=== PATIENT | male | born 1940 | race Caucasian/White ===

== ENCOUNTER 2018-01-19 17:35 | Inpatient (IN) ==
[2018-01-19 18:09] LABS: Basophils % 0.3 % (0.0-0.8); Eosinophils # 0.2 10*3/uL (0.0-0.87); Eosinophils % 1.7 % (0.00-10.9); Hematocrit 39.2 VOL% (42.0-52.0); Immature Granulocytes % 0.4 %; Immature Granulocytes Absolute 0.05 #; Lymphocytes # 1.2 10*3/uL (1.4-4.0); Lymphocytes % 8.8 % (21.2-54.2); Mean Corpuscular HGB Conc 33.2 GM/DL (32-36); Mean Corpuscular Hemoglobin 30 PG (27-34); Mean Corpuscular Volume 89.9 FL (87-102); Mean Platelet Volume 9.4 FL (9.6-12.0); Neutrophils # 11.4 10*3/uL (1.4-7.4); Neutrophils % 81.8 % (38.7-73.9); Platelet Count 310 T/CUMM (130-400); Red Blood Count 4.36 MC/CUMM (3.8-5.5); Red Cell Distribution Width 13.2 % (9.3-17.3); White Blood Count 13.9 T/CUMM (4-12)
[2018-01-19 18:29] LABS: Albumin 3.8 G/DL (3.4-5.0); Bilirubin,Total 0.5 MG/DL (0.2-1.0); Calcium 9.6 MG/DL (8.5-10.1); Osmolality,Calculated 274.1 MOS/KG (273-304); Potassium 4.3 MMOL/L (3.5-5.1); Total Protein 8.5 G/DL (6.4-8.3)
[2018-01-19] MEDS ORDERED: SODIUM CHLORIDE 0.9% 1,000 ML IV STA (18:45)
[2018-01-19] MEDS ORDERED: ONDANSETRON 4 MG/2 ML VIAL IV STA (18:45)
[2018-01-19] MEDS ORDERED: PANTOPRAZOLE 40 MG VIAL IV STA (18:45)
[2018-01-19] MEDS ORDERED: HYDROmorphone 2 MG/1 ML VIAL IV STA (18:45)
[2018-01-19] MEDS ORDERED: ACETAMINOPHEN 500 MG TABLET PO STA (18:54)
[2018-01-19 19:10] LABS: Apearance,Urine CLOUDY (Clear); Bilirubin,Urine Negative (Negative); Blood, Urine Negative (Negative); Glucose,Urine (UA) Negative (Negative); Ketones,Urine Negative (Negative); Mucus,Urine Occasional /LPF (Occasional); Nitrite,Urine Positive (Negative); Protein,Urine Negative; RBC,Urine 9 /HPF (0-4); Squamous Epithelial Cell,Urine Occasional /HPF (0-10); Urine Color Yellow (Yellow); Urine Urobilinogen < 2.0 EU/DL (0.2-1.0); WBC,Urine 136 /HPF (0-6)
[2018-01-19] MEDS ORDERED: MEROPENEM 1,000 MG in SODIUM CHLORIDE 0.9% 100 ML IV STA (20:10)
[2018-01-19] MEDS ORDERED: ONDANSETRON 4 MG/2 ML VIAL IV PRN (21:53)
[2018-01-19] MEDS ORDERED: MORPHINE 4 MG/1 ML VIAL IV PRN (21:53)
[2018-01-19] MEDS ORDERED: ENOXAPARIN 40 MG/0.4 ML SYRINGE SUBCUT SCH (22:00)
[2018-01-19] MEDS ORDERED: Saccharomyces Boulardii [Probiotic] 250 MG PO SCH (23:07)
[2018-01-19] MEDS ORDERED: NITROGLYCERIN SL 0.4 MG TABLET SL PRN (23:07)
[2018-01-19] MEDS: SODIUM CHLORIDE 0.9% 1,000 ML IV SCH (23:46)
[2018-01-19] MEDS: FENOFIBRATE 145 MG TABLET PO SCH (23:57)
[2018-01-19] MEDS: MAGNESIUM CHLORIDE 64 MG TABLET PO SCH (23:57)
[2018-01-19] MEDS: OMEGA 3 ACID ETHYL ESTERS 1 GM CAPSULE PO SCH (23:57)
[2018-01-19] MEDS: RANOLAZINE 500 MG TABLET PO SCH (23:57)
[2018-01-19] MEDS: ASPIRIN EC 81 MG TABLET PO SCH (23:57)
[2018-01-19] MEDS: PRAVASTATIN 20 MG TABLET PO SCH (23:57)
[2018-01-19] MEDS: TICAGRELOR 90 MG TABLET PO SCH (23:57)
[2018-01-19] MEDS: ATENOLOL 25 MG TABLET PO SCH (23:58)
[2018-01-20 04:32] LABS: Basophils % 0.2 % (0.0-0.8); Eosinophils # 0.2 10*3/uL (0.0-0.87); Eosinophils % 1.7 % (0.00-10.9); Hematocrit 32.8 VOL% (42.0-52.0); Hemoglobin 10.7 GM/DL (14.0-18.0); Immature Granulocytes % 0.6 %; Immature Granulocytes Absolute 0.05 #; Lymphocytes % 11.3 % (21.2-54.2); Mean Corpuscular HGB Conc 32.6 GM/DL (32-36); Mean Corpuscular Hemoglobin 29 PG (27-34); Mean Corpuscular Volume 89.1 FL (87-102); Mean Platelet Volume 9.9 FL (9.6-12.0); Monocytes # 0.9 10*3/uL (0.11-0.8); Monocytes % 10.4 % (1.7-12.7); Neutrophils # 6.6 10*3/uL (1.4-7.4); Neutrophils % 75.8 % (38.7-73.9); Platelet Count 196 T/CUMM (130-400); Red Blood Count 3.68 MC/CUMM (3.8-5.5); Red Cell Distribution Width 13.2 % (9.3-17.3); White Blood Count 8.7 T/CUMM (4-12)
[2018-01-20 05:07] LABS: Calcium 8.8 MG/DL (8.5-10.1); Osmolality,Calculated 277.7 MOS/KG (273-304); Potassium 4.1 MMOL/L (3.5-5.1)
[2018-01-20] MEDS ORDERED: CRANBERRY FRUIT 450 MG PO SCH (08:00)
[2018-01-20] MEDS: FLUTICASONE 50 MCG NASAL SPRAY 16 GM BOTTLE BOTH NARES SCH (08:24)
[2018-01-20] MEDS: ACETAMINOPHEN 325 MG TABLET PO PRN (08:24)
[2018-01-20] MEDS: IRON (CARBONYL)/VIT C/B12/FA TABLET PO SCH ×2 (08:26→16:06)
[2018-01-20] MEDS: RANOLAZINE 500 MG TABLET PO SCH ×2 (08:26→20:44)
[2018-01-20] MEDS: ATENOLOL 25 MG TABLET PO SCH ×2 (08:26→20:44)
[2018-01-20] MEDS: MAGNESIUM CHLORIDE 64 MG TABLET PO SCH ×2 (08:26→20:44)
[2018-01-20] MEDS: TICAGRELOR 90 MG TABLET PO SCH (08:27)
[2018-01-20] MEDS: OMEGA 3 ACID ETHYL ESTERS 1 GM CAPSULE PO SCH ×2 (08:27→20:44)
[2018-01-20] MEDS ORDERED: VALSARTAN 80 MG TABLET PO SCH (09:00)
[2018-01-20] MEDS: PANTOPRAZOLE 40 MG TABLET PO SCH (09:18)
[2018-01-20] MEDS: CYANOCOBALAMIN 500 MCG TABLET PO SCH (09:18)
[2018-01-20] MEDS: MULTIVITAMIN (CENTRUM) TABLET PO SCH (09:18)
[2018-01-20] MEDS: CALCIUM (CARBONATE)/VITAMIN D 600 MG-400 UNIT TABLET PO SCH (09:18)
[2018-01-20] MEDS: MEROPENEM 1,000 MG in SODIUM CHLORIDE 0.9% 100 ML IV SCH ×2 (09:18→20:45)
[2018-01-20] MEDS: SODIUM CHLORIDE 0.9% 1,000 ML IV SCH ×2 (09:26→18:30)
[2018-01-20 10:26] LABS: INR 1.1; PT Patient Result 11.4 SECS
[2018-01-20] MEDS: ASPIRIN EC 81 MG TABLET PO SCH (20:44)
[2018-01-20] MEDS: FENOFIBRATE 145 MG TABLET PO SCH (20:44)
[2018-01-20] MEDS: PRAVASTATIN 20 MG TABLET PO SCH (20:44)
[2018-01-20] MEDS ORDERED: Saccharomyces Boulardii [Probiotic] 250 MG PO SCH (21:00)
[2018-01-21] MEDS: SODIUM CHLORIDE 0.9% 1,000 ML IV SCH ×2 (04:32→14:42)
[2018-01-21 06:45] LABS: Basophils % 0.5 % (0.0-0.8); Eosinophils # 0.2 10*3/uL (0.0-0.87); Eosinophils % 3.6 % (0.00-10.9); Hematocrit 29.8 VOL% (42.0-52.0); Hemoglobin 10.1 GM/DL (14.0-18.0); Immature Granulocytes % 0.5 %; Immature Granulocytes Absolute 0.03 #; Lymphocytes # 0.9 10*3/uL (1.4-4.0); Lymphocytes % 13.4 % (21.2-54.2); Mean Corpuscular HGB Conc 33.9 GM/DL (32-36); Mean Corpuscular Hemoglobin 30 PG (27-34); Mean Corpuscular Volume 87.9 FL (87-102); Mean Platelet Volume 9.8 FL (9.6-12.0); Monocytes # 0.8 10*3/uL (0.11-0.8); Monocytes % 11.9 % (1.7-12.7); Neutrophils # 4.5 10*3/uL (1.4-7.4); Neutrophils % 70.1 % (38.7-73.9); Platelet Count 186 T/CUMM (130-400); Red Blood Count 3.39 MC/CUMM (3.8-5.5); Red Cell Distribution Width 13.2 % (9.3-17.3); White Blood Count 6.5 T/CUMM (4-12)
[2018-01-21 07:12] LABS: Calcium 8.4 MG/DL (8.5-10.1); Osmolality,Calculated 281.3 MOS/KG (273-304); Potassium 3.8 MMOL/L (3.5-5.1)
[2018-01-21] MEDS: IRON (CARBONYL)/VIT C/B12/FA TABLET PO SCH ×2 (08:13→16:42)
[2018-01-21] MEDS: CYANOCOBALAMIN 500 MCG TABLET PO SCH (08:15)
[2018-01-21] MEDS: PANTOPRAZOLE 40 MG TABLET PO SCH (08:15)
[2018-01-21] MEDS: OMEGA 3 ACID ETHYL ESTERS 1 GM CAPSULE PO SCH ×2 (08:15→22:10)
[2018-01-21] MEDS: CALCIUM (CARBONATE)/VITAMIN D 600 MG-400 UNIT TABLET PO SCH (08:16)
[2018-01-21] MEDS: ATENOLOL 25 MG TABLET PO SCH ×2 (08:16→22:16)
[2018-01-21] MEDS: MULTIVITAMIN (CENTRUM) TABLET PO SCH (08:16)
[2018-01-21] MEDS: RANOLAZINE 500 MG TABLET PO SCH ×2 (08:16→22:10)
[2018-01-21] MEDS: MAGNESIUM CHLORIDE 64 MG TABLET PO SCH ×2 (08:17→22:10)
[2018-01-21] MEDS: MEROPENEM 1,000 MG in SODIUM CHLORIDE 0.9% 100 ML IV SCH ×2 (08:18→22:52)
[2018-01-21] MEDS: FLUTICASONE 50 MCG NASAL SPRAY 16 GM BOTTLE BOTH NARES SCH (08:18)
[2018-01-21] MEDS: FENOFIBRATE 145 MG TABLET PO SCH (22:10)
[2018-01-21] MEDS: PRAVASTATIN 20 MG TABLET PO SCH (22:10)
[2018-01-22] MEDS: SODIUM CHLORIDE 0.9% 1,000 ML IV SCH ×3 (04:26→15:25)
[2018-01-22] MEDS: IRON (CARBONYL)/VIT C/B12/FA TABLET PO SCH ×2 (07:46→16:28)
[2018-01-22] MEDS: CALCIUM (CARBONATE)/VITAMIN D 600 MG-400 UNIT TABLET PO SCH (09:05)
[2018-01-22] MEDS: MAGNESIUM CHLORIDE 64 MG TABLET PO SCH ×2 (09:06→21:58)
[2018-01-22] MEDS: FLUTICASONE 50 MCG NASAL SPRAY 16 GM BOTTLE BOTH NARES SCH (09:06)
[2018-01-22] MEDS: MULTIVITAMIN (CENTRUM) TABLET PO SCH (09:06)
[2018-01-22] MEDS: RANOLAZINE 500 MG TABLET PO SCH ×2 (09:06→21:58)
[2018-01-22] MEDS: MEROPENEM 1,000 MG in SODIUM CHLORIDE 0.9% 100 ML IV SCH ×2 (09:06→21:59)
[2018-01-22] MEDS: PANTOPRAZOLE 40 MG TABLET PO SCH (09:06)
[2018-01-22] MEDS: OMEGA 3 ACID ETHYL ESTERS 1 GM CAPSULE PO SCH ×2 (09:06→21:58)
[2018-01-22] MEDS: CYANOCOBALAMIN 500 MCG TABLET PO SCH (09:07)
[2018-01-22] MEDS: ATENOLOL 25 MG TABLET PO SCH ×2 (09:10→21:58)
[2018-01-22] MEDS: PRAVASTATIN 20 MG TABLET PO SCH (21:58)
[2018-01-22] MEDS: FENOFIBRATE 145 MG TABLET PO SCH (21:58)
[2018-01-23] MEDS: IRON (CARBONYL)/VIT C/B12/FA TABLET PO SCH ×2 (08:20→16:15)
[2018-01-23] MEDS: MEROPENEM 1,000 MG in SODIUM CHLORIDE 0.9% 100 ML IV SCH ×2 (08:23→22:32)
[2018-01-23] MEDS: ATENOLOL 25 MG TABLET PO SCH ×2 (08:24→22:30)
[2018-01-23] MEDS: CYANOCOBALAMIN 500 MCG TABLET PO SCH (08:24)
[2018-01-23] MEDS: FLUTICASONE 50 MCG NASAL SPRAY 16 GM BOTTLE BOTH NARES SCH (08:24)
[2018-01-23] MEDS: RANOLAZINE 500 MG TABLET PO SCH ×2 (08:24→22:30)
[2018-01-23] MEDS: MULTIVITAMIN (CENTRUM) TABLET PO SCH (08:24)
[2018-01-23] MEDS: PANTOPRAZOLE 40 MG TABLET PO SCH (08:24)
[2018-01-23] MEDS: OMEGA 3 ACID ETHYL ESTERS 1 GM CAPSULE PO SCH ×2 (08:24→22:29)
[2018-01-23] MEDS: MAGNESIUM CHLORIDE 64 MG TABLET PO SCH ×2 (08:24→22:29)
[2018-01-23] MEDS: CALCIUM (CARBONATE)/VITAMIN D 600 MG-400 UNIT TABLET PO SCH (08:24)
[2018-01-23] MEDS: PRAVASTATIN 20 MG TABLET PO SCH (22:29)
[2018-01-23] MEDS: FENOFIBRATE 145 MG TABLET PO SCH (22:30)
[2018-01-24 05:47] LABS: Basophils % 0.4 % (0.0-0.8); Eosinophils # 0.6 10*3/uL (0.0-0.87); Eosinophils % 11.2 % (0.00-10.9); Hematocrit 29.1 VOL% (42.0-52.0); Hemoglobin 9.8 GM/DL (14.0-18.0); Immature Granulocytes % 0.2 %; Immature Granulocytes Absolute 0.01 #; Lymphocytes # 0.9 10*3/uL (1.4-4.0); Lymphocytes % 17.5 % (21.2-54.2); Mean Corpuscular HGB Conc 33.7 GM/DL (32-36); Mean Corpuscular Hemoglobin 30 PG (27-34); Mean Corpuscular Volume 88.2 FL (87-102); Mean Platelet Volume 10.4 FL (9.6-12.0); Monocytes # 0.5 10*3/uL (0.11-0.8); Neutrophils % 60.7 % (38.7-73.9); Platelet Count 169 T/CUMM (130-400); Red Cell Distribution Width 12.7 % (9.3-17.3); White Blood Count 4.9 T/CUMM (4-12)
[2018-01-24 06:06] LABS: Calcium 8.7 MG/DL (8.5-10.1)
[2018-01-24 06:07] LABS: Potassium 3.8 MMOL/L (3.5-5.1)
[2018-01-24 06:27] LABS: Band Neutrophils 2 % (0-10); Eosinophils 7 % (0-10); Lymphocytes 17 % (20-55); Segmented Neutrophils 64 % (50-85)
[2018-01-24 06:29] LABS: Platelet Estimate Normal; Total Cells Counted 100
[2018-01-24] MEDS ORDERED: FUROSEMIDE 40 MG/4 ML VIAL IV ONE (09:00)
[2018-01-24] MEDS: CYANOCOBALAMIN 500 MCG TABLET PO SCH (09:14)
[2018-01-24] MEDS: ATENOLOL 25 MG TABLET PO SCH ×2 (09:14→21:11)
[2018-01-24] MEDS: RANOLAZINE 500 MG TABLET PO SCH ×2 (09:14→21:10)
[2018-01-24] MEDS: PANTOPRAZOLE 40 MG TABLET PO SCH (09:14)
[2018-01-24] MEDS: OMEGA 3 ACID ETHYL ESTERS 1 GM CAPSULE PO SCH ×2 (09:14→21:11)
[2018-01-24] MEDS: MULTIVITAMIN (CENTRUM) TABLET PO SCH (09:14)
[2018-01-24] MEDS: MAGNESIUM CHLORIDE 64 MG TABLET PO SCH ×2 (09:14→21:00)
[2018-01-24] MEDS: CALCIUM (CARBONATE)/VITAMIN D 600 MG-400 UNIT TABLET PO SCH (09:14)
[2018-01-24] MEDS: cefTRIAXone 1,000 MG in SYRINGE 1 EACH IV SCH (09:15)
[2018-01-24] MEDS: IRON (CARBONYL)/VIT C/B12/FA TABLET PO SCH ×2 (09:15→16:52)
[2018-01-24] MEDS: FLUTICASONE 50 MCG NASAL SPRAY 16 GM BOTTLE BOTH NARES SCH (09:15)
[2018-01-24] MEDS: PRAVASTATIN 20 MG TABLET PO SCH (21:10)
[2018-01-24] MEDS: FENOFIBRATE 145 MG TABLET PO SCH (21:10)
[2018-01-24] MEDS: LACTOBACILLUS ACIDOPHILUS/BULGARICUS CAPLET PO SCH (21:10)
[2018-01-25 07:33] LABS: Basophils % 0.3 % (0.0-0.8); Eosinophils # 0.5 10*3/uL (0.0-0.87); Eosinophils % 7.7 % (0.00-10.9); Hematocrit 31.3 VOL% (42.0-52.0); Hemoglobin 10.5 GM/DL (14.0-18.0); Immature Granulocytes % 0.2 %; Immature Granulocytes Absolute 0.01 #; Lymphocytes # 0.6 10*3/uL (1.4-4.0); Lymphocytes % 10.4 % (21.2-54.2); Mean Corpuscular HGB Conc 33.5 GM/DL (32-36); Mean Corpuscular Hemoglobin 29 PG (27-34); Mean Corpuscular Volume 86.9 FL (87-102); Mean Platelet Volume 10.1 FL (9.6-12.0); Monocytes # 0.5 10*3/uL (0.11-0.8); Monocytes % 8.3 % (1.7-12.7); Neutrophils # 4.5 10*3/uL (1.4-7.4); Neutrophils % 73.1 % (38.7-73.9); Platelet Count 244 T/CUMM (130-400); Red Cell Distribution Width 12.9 % (9.3-17.3); White Blood Count 6.1 T/CUMM (4-12)
[2018-01-25 08:08] LABS: Calcium 9.2 MG/DL (8.5-10.1); Osmolality,Calculated 281.3 MOS/KG (273-304); Potassium 3.9 MMOL/L (3.5-5.1)
[2018-01-25] MEDS ORDERED: fentaNYL 100 MCG/2 ML VIAL ONE (09:33)
[2018-01-25] MEDS ORDERED: MIDAZOLAM 2 MG/2 ML VIAL ONE (09:33)
[2018-01-25] MEDS: IRON (CARBONYL)/VIT C/B12/FA TABLET PO SCH ×2 (09:35→16:31)
[2018-01-25] MEDS ORDERED: MIDAZOLAM 2 MG/2 ML VIAL IV ONE (10:16)
[2018-01-25] MEDS ORDERED: fentaNYL 100 MCG/2 ML VIAL IV ONE (10:16)
[2018-01-25] MEDS: MULTIVITAMIN (CENTRUM) TABLET PO SCH (11:10)
[2018-01-25] MEDS: RANOLAZINE 500 MG TABLET PO SCH ×2 (11:10→21:19)
[2018-01-25] MEDS: PANTOPRAZOLE 40 MG TABLET PO SCH (11:10)
[2018-01-25] MEDS: MAGNESIUM CHLORIDE 64 MG TABLET PO SCH ×2 (11:10→21:20)
[2018-01-25] MEDS: OMEGA 3 ACID ETHYL ESTERS 1 GM CAPSULE PO SCH ×2 (11:10→21:19)
[2018-01-25] MEDS: ATENOLOL 25 MG TABLET PO SCH ×2 (11:11→21:20)
[2018-01-25] MEDS: CALCIUM (CARBONATE)/VITAMIN D 600 MG-400 UNIT TABLET PO SCH (11:11)
[2018-01-25] MEDS: FLUTICASONE 50 MCG NASAL SPRAY 16 GM BOTTLE BOTH NARES SCH (11:11)
[2018-01-25] MEDS: cefTRIAXone 1,000 MG in SYRINGE 1 EACH IV SCH (11:11)
[2018-01-25] MEDS: CYANOCOBALAMIN 500 MCG TABLET PO SCH (11:11)
[2018-01-25] MEDS: ACETAMINOPHEN 325 MG TABLET PO PRN (13:35)
[2018-01-25] MEDS: LACTOBACILLUS ACIDOPHILUS/BULGARICUS CAPLET PO SCH (21:19)
[2018-01-25] MEDS: PRAVASTATIN 20 MG TABLET PO SCH (21:19)
[2018-01-25] MEDS: FENOFIBRATE 145 MG TABLET PO SCH (21:20)
[2018-01-26 05:30] LABS: Basophils % 0.2 % (0.0-0.8); Eosinophils # 0.6 10*3/uL (0.0-0.87); Eosinophils % 10.3 % (0.00-10.9); Hematocrit 28.7 VOL% (42.0-52.0); Hemoglobin 9.8 GM/DL (14.0-18.0); Immature Granulocytes % 0.5 %; Immature Granulocytes Absolute 0.03 #; Lymphocytes # 0.9 10*3/uL (1.4-4.0); Lymphocytes % 16.4 % (21.2-54.2); Mean Corpuscular HGB Conc 34.1 GM/DL (32-36); Mean Corpuscular Hemoglobin 30 PG (27-34); Mean Corpuscular Volume 86.4 FL (87-102); Monocytes # 0.5 10*3/uL (0.11-0.8); Monocytes % 8.8 % (1.7-12.7); Neutrophils # 3.5 10*3/uL (1.4-7.4); Neutrophils % 63.8 % (38.7-73.9); Platelet Count 230 T/CUMM (130-400); Red Blood Count 3.32 MC/CUMM (3.8-5.5); Red Cell Distribution Width 12.9 % (9.3-17.3); White Blood Count 5.6 T/CUMM (4-12)
[2018-01-26 05:43] LABS: Calcium 8.9 MG/DL (8.5-10.1); Osmolality,Calculated 282.1 MOS/KG (273-304)
[2018-01-26] MEDS: OMEGA 3 ACID ETHYL ESTERS 1 GM CAPSULE PO SCH (10:06)
[2018-01-26] MEDS: ATENOLOL 25 MG TABLET PO SCH (10:06)
[2018-01-26] MEDS: MULTIVITAMIN (CENTRUM) TABLET PO SCH (10:06)
[2018-01-26] MEDS: CALCIUM (CARBONATE)/VITAMIN D 600 MG-400 UNIT TABLET PO SCH (10:06)
[2018-01-26] MEDS: cefTRIAXone 1,000 MG in SYRINGE 1 EACH IV SCH ×2 (10:07→10:31)
[2018-01-26] MEDS: RANOLAZINE 500 MG TABLET PO SCH (10:07)
[2018-01-26] MEDS: MAGNESIUM CHLORIDE 64 MG TABLET PO SCH (10:07)
[2018-01-26] MEDS: PANTOPRAZOLE 40 MG TABLET PO SCH (10:07)
[2018-01-26] MEDS: CYANOCOBALAMIN 500 MCG TABLET PO SCH (10:07)
[2018-01-26] MEDS: IRON (CARBONYL)/VIT C/B12/FA TABLET PO SCH (10:07)
[2018-01-26] MEDS: FLUTICASONE 50 MCG NASAL SPRAY 16 GM BOTTLE BOTH NARES SCH (10:08)
[2018-01-26 11:36] VITALS: BP 144/63
[2018-01-26] MEDS ORDERED: cefTRIAXone 1,000 MG VIAL IM ONE (13:00)
== END 2018-01-26 12:40 | disposition home or self-care (01) | DRG 660 ==
LOC: N.ED 17:35 → N.EDINP 21:46 → N.2E 23:07
PROVIDERS: ADMIT Internal Medicine; ATTEND Internal Medicine

== ENCOUNTER 2022-07-18 21:57 | Observation (INO) ==
[2022-07-18] MEDS ORDERED: ASPIRIN 325 MG TABLET PO STA (22:12)
[2022-07-18 22:28] LABS: Basophils % 0.3 % (0.0-0.8); Eosinophils # 0.2 10*3/uL (0.0-0.87); Eosinophils % 3.1 % (0.00-10.9); Hematocrit 33.9 VOL% (42.0-52.0); Hemoglobin 11.1 GM/DL (14.0-18.0); Immature Granulocytes % 0.5 %; Immature Granulocytes Absolute 0.03 #; Lymphocytes # 1.6 10*3/uL (1.4-4.0); Lymphocytes % 27.8 % (21.2-54.2); Mean Corpuscular HGB Conc 32.7 GM/DL (32-36); Mean Corpuscular Volume 90.9 FL (87-102); Mean Platelet Volume 9.8 FL (9.6-12.0); Monocytes # 0.6 10*3/uL (0.11-0.8); Monocytes % 10.6 % (1.7-12.7); Neutrophils % 57.7 % (38.7-73.9); Platelet Count 242 T/CUMM (130-400); Red Blood Count 3.73 MC/CUMM (3.8-5.5); Red Cell Distribution Width 13.3 % (9.3-17.3); White Blood Count 5.83 T/CUMM (4-12)
[2022-07-18 22:43] LABS: Alanine Aminotransferase 29 U/L (16-61); Albumin 3.4 G/DL (3.4-5.0); Alkaline Phosphatase 54 U/L (45-117); Aspartate Amino Transferase 30 U/L (0-37); Bilirubin,Total < 0.39 MG/DL (0.20-1.00); Blood Urea Nitrogen 26 MG/DL (7-18); Calcium 9.7 MG/DL (8.5-10.1); Carbon Dioxide 30 MMOL/L (21-32); Chloride 105 MMOL/L (98-107); Glucose 146 MG/DL (74-106); Osmolality,Calculated 288.3 MOS/KG (273-304); Potassium 4.1 MMOL/L (3.5-5.1); Sodium 141 MMOL/L (136-145); Total Protein 6.9 G/DL (6.4-8.2)
[2022-07-18 22:49] LABS: INR 0.9; PT Patient Result 10.3 SECS (10.1-12.1); Partial Thromboplastin Time 25.1 SECS (23.7-32.9)
[2022-07-18] MEDS ORDERED: ONDANSETRON 4 MG/2 ML VIAL IV PRN (23:14)
[2022-07-18] MEDS ORDERED: ZALEPLON 5 MG CAPSULE PO PRN (23:14)
[2022-07-18] MEDS ORDERED: ACETAMINOPHEN 325 MG TABLET PO PRN (23:14)
[2022-07-18] MEDS: NITROGLYCERIN 2% OINT 1 INCH/GM PACK TOP SCH (23:35)
[2022-07-19] MEDS: ENOXAPARIN 40 MG/0.4 ML SYRINGE SUBCUT SCH (01:09)
[2022-07-19] MEDS: NITROGLYCERIN 2% OINT 1 INCH/GM PACK TOP SCH ×4 (05:31→23:43)
[2022-07-19 06:53] LABS: Basophils % 0.4 % (0.0-0.8); Eosinophils # 0.2 10*3/uL (0.0-0.87); Eosinophils % 3.6 % (0.00-10.9); Hematocrit 31.1 VOL% (42.0-52.0); Hemoglobin 10.3 GM/DL (14.0-18.0); Immature Granulocytes % 0.5 %; Immature Granulocytes Absolute 0.03 #; Lymphocytes # 1.7 10*3/uL (1.4-4.0); Lymphocytes % 30.1 % (21.2-54.2); Mean Corpuscular HGB Conc 33.1 GM/DL (32-36); Mean Corpuscular Volume 89.9 FL (87-102); Mean Platelet Volume 9.9 FL (9.6-12.0); Monocytes # 0.5 10*3/uL (0.11-0.8); Neutrophils % 56.4 % (38.7-73.9); Platelet Count 204 T/CUMM (130-400); Red Blood Count 3.46 MC/CUMM (3.8-5.5); Red Cell Distribution Width 13.2 % (9.3-17.3); White Blood Count 5.54 T/CUMM (4-12)
[2022-07-19 07:05] LABS: Alanine Aminotransferase 24 U/L (16-61); Albumin 2.9 G/DL (3.4-5.0); Alkaline Phosphatase 47 U/L (45-117); Aspartate Amino Transferase 25 U/L (0-37); Bilirubin,Total < 0.39 MG/DL (0.20-1.00); Blood Urea Nitrogen 24 MG/DL (7-18); Calcium 9.9 MG/DL (8.5-10.1); Carbon Dioxide 27 MMOL/L (21-32); Chloride 110 MMOL/L (98-107); Glucose 97 MG/DL (74-106); Osmolality,Calculated 286.1 MOS/KG (273-304); Sodium 142 MMOL/L (136-145); Total Protein 6.6 G/DL (6.4-8.2)
[2022-07-19 07:12] LABS: Risk Ratio 5.14
[2022-07-19] MEDS: PANTOPRAZOLE 40 MG TABLET PO SCH ×2 (08:11→10:15)
[2022-07-19] MEDS: VALSARTAN 80 MG TABLET PO SCH (10:14)
[2022-07-19] MEDS: ASCORBIC ACID 500 MG TABLET PO SCH (10:14)
[2022-07-19] MEDS: atenoloL 25 MG TABLET PO SCH ×2 (10:15→21:07)
[2022-07-19] MEDS: RANOLAZINE 500 MG TABLET PO SCH ×2 (10:15→21:06)
[2022-07-19] MEDS: FENOFIBRATE 145 MG TABLET PO SCH (10:15)
[2022-07-19] MEDS ORDERED: CETIRIZINE 10 MG TABLET PO PRN (12:14)
[2022-07-19] MEDS ORDERED: CHOLESTYRAMINE/ASPARTAME 4 GM PACK PO PRN (12:22)
[2022-07-19] MEDS ORDERED: FLUTICASONE 50 MCG NASAL SPRAY 16 GM BOTTLE BOTH NARES SCH ×2 (12:30→21:00)
[2022-07-19] MEDS: CALCIUM (CARBONATE)/VITAMIN D 600 MG-400 UNIT TABLET PO SCH (13:12)
[2022-07-19] MEDS: OMEGA 3 ACID ETHYL ESTERS 1 GM CAPSULE PO SCH ×2 (13:12→21:07)
[2022-07-19] MEDS: CYANOCOBALAMIN 500 MCG TABLET PO SCH (13:12)
[2022-07-19] MEDS: FERROUS SULFATE 325 MG TABLET PO SCH (13:12)
[2022-07-19] MEDS: KETOCONAZOLE 2% SHAMPOO 120 ML BOTTLE TOP SCH (13:18)
[2022-07-19] MEDS ORDERED: SIMVASTATIN 20 MG TABLET PO SCH (21:00)
[2022-07-19] MEDS ORDERED: ASPIRIN EC 81 MG TABLET PO SCH (21:00)
[2022-07-20] MEDS: NITROGLYCERIN 2% OINT 1 INCH/GM PACK TOP SCH ×2 (05:27→14:11)
[2022-07-20 05:42] LABS: Basophils % 0.3 % (0.0-0.8); Eosinophils # 0.2 10*3/uL (0.0-0.87); Eosinophils % 3.7 % (0.00-10.9); Hematocrit 32.4 VOL% (42.0-52.0); Hemoglobin 10.3 GM/DL (14.0-18.0); Immature Granulocytes % 0.3 %; Immature Granulocytes Absolute 0.02 #; Lymphocytes # 1.8 10*3/uL (1.4-4.0); Lymphocytes % 27.2 % (21.2-54.2); Mean Corpuscular HGB Conc 31.8 GM/DL (32-36); Mean Platelet Volume 9.8 FL (9.6-12.0); Monocytes # 0.6 10*3/uL (0.11-0.8); Monocytes % 8.4 % (1.7-12.7); Neutrophils % 60.1 % (38.7-73.9); Platelet Count 209 T/CUMM (130-400); Red Blood Count 3.52 MC/CUMM (3.8-5.5); Red Cell Distribution Width 13.3 % (9.3-17.3); White Blood Count 6.51 T/CUMM (4-12)
[2022-07-20 05:56] LABS: Calcium 9.4 MG/DL (8.5-10.1); Osmolality,Calculated 284.3 MOS/KG (273-304); Potassium 4.4 MMOL/L (3.5-5.1)
[2022-07-20] MEDS: FERROUS SULFATE 325 MG TABLET PO SCH ×2 (07:10→17:25)
[2022-07-20] MEDS ORDERED: SODIUM CHLORIDE 0.9% 1,000 ML IV SCH (08:00)
[2022-07-20] MEDS: CALCIUM (CARBONATE)/VITAMIN D 600 MG-400 UNIT TABLET PO SCH (08:04)
[2022-07-20] MEDS: VALSARTAN 80 MG TABLET PO SCH (08:04)
[2022-07-20] MEDS: KETOCONAZOLE 2% SHAMPOO 120 ML BOTTLE TOP SCH (08:05)
[2022-07-20] MEDS: PANTOPRAZOLE 40 MG TABLET PO SCH (08:05)
[2022-07-20] MEDS: RANOLAZINE 500 MG TABLET PO SCH (08:05)
[2022-07-20] MEDS: OMEGA 3 ACID ETHYL ESTERS 1 GM CAPSULE PO SCH (08:05)
[2022-07-20] MEDS: ENOXAPARIN 40 MG/0.4 ML SYRINGE SUBCUT SCH (08:05)
[2022-07-20] MEDS: CYANOCOBALAMIN 500 MCG TABLET PO SCH (08:06)
[2022-07-20] MEDS: atenoloL 25 MG TABLET PO SCH (08:06)
[2022-07-20] MEDS: FENOFIBRATE 145 MG TABLET PO SCH (08:06)
[2022-07-20] MEDS: ASCORBIC ACID 500 MG TABLET PO SCH (08:06)
[2022-07-20] MEDS ORDERED: DIAZEPAM 5 MG TABLET PO ONE (09:00)
[2022-07-20] MEDS ORDERED: diphenhydrAMINE CAP 25 MG CAPSULE PO ONE (09:00)
[2022-07-20] MEDS ORDERED: HEPARIN/NACL 0.9% 2 UNITS/ML 2,000 UNIT/1,000 ML BAG IV ONE (10:01)
[2022-07-20] MEDS ORDERED: MIDAZOLAM 2 MG/2 ML VIAL ONE (10:21)
[2022-07-20] MEDS ORDERED: fentaNYL 100 MCG/2 ML VIAL ONE (10:21)
[2022-07-20] MEDS ORDERED: ASPIRIN 325 MG TABLET ONE (10:31)
[2022-07-20] MEDS ORDERED: MORPHINE 2 MG/1 ML SYRINGE IV PRN (11:36)
[2022-07-20] MEDS ORDERED: ACETAMINOPHEN/CODEINE 300-30 MG TABLET PO PRN (11:36)
[2022-07-20] MEDS ORDERED: NITROGLYCERIN SL 0.4 MG TABLET SL PRN (11:36)
[2022-07-20 15:24] VITALS: BP 130/58
== END 2022-07-20 18:44 | disposition home or self-care (01) ==
LOC: N.EDINP 21:57 → N.ED 21:57 → SUATTDRO 23:14 → N.EDINP 07-19 00:07 → N.2W 07-19 00:38
PROVIDERS: ADMIT Internal Medicine; ATTEND Internal Medicine Cardiovascular Disease